=== PATIENT | female | born 1965 | race Caucasian/White ===

== ENCOUNTER 2018-10-02 06:40 | Day surgery (SDC) | payer MEDICARE ==
[2018-09-29 08:09] LABS: HEMATOCRIT 36.9 % (36.0-48.0); HEMOGLOBIN 12.5 g/dL (12-16); MCH 32.6 pg (26.0-34.0); MCHC 33.9 g/dL (31.0-37.0); MCV 96.3 fL (80.0-100.0); MEAN PLATELET VOLUME 8.7 fL (7.4-10.4); RBC 3.83 10x6/uL (4.00-5.40); RDW 12.9 % (11.5-14.5); WBC 10.6 10x3/uL (4.8-10.8)
[~2018-10-02] VITALS: Ht 152.4 cm; Wt 68.0 kg
[~2018-10-02 06:40] MED LIST: BAYER CHEWABLE81 MG PO; CALTRATE 600 M600 M1 PO; CARAFATE1 G PO; MOBIC7.5 MG PO; MYLANTA II SUSP30 ML PO; NEURONTIN 300300 MG PO; SYNTHROID25 MCG PO; ULTRACET TABLET1 TAB PO
[2018-10-02] MEDS ORDERED: NEXIUM20 MG PO (07:17)
[2018-10-02 07:20] VITALS: BP 110/74; Ht 152.4 cm; Wt 68.0 kg
[2018-10-02] MEDS ORDERED: DILAUDID2 MG PO (08:48)
--- NOTE | 2018-10-02 10:50 | NUR ---
104 DR. MALISSA RODGERS. GIVES POST OP INSTRUCTIONS TO PT AND SPOUSE.
--- NOTE | 2018-10-02 10:52 | NUR ---
1050 DC INSTS REVIEWED VOICED UNDERSTANDING RX GIVEN SLING PROVIDED PT. GETTING DRESSED.
--- NOTE | 2018-10-05 12:35 | OP ---
PATIENT NAME: MONIE MARCELO MEDICAL RECORD: [id number] :69 LOCATION:D.OPS ADMISSION DATE: SURGEON: LARON LEONARDO MD DATE OF OPERATION: 10/02/2018 PREOPERATIVE DIAGNOSIS: Carpal tunnel syndrome of the left wrist. POSTOPERATIVE DIAGNOSIS: Carpal tunnel syndrome of the left wrist. PROCEDURE: Left carpal tunnel release. SURGEON: Laron Leonardo MD ANESTHESIA: General. YEAST FERMENTATION ATTENDANT: Patricio López. INTRAOPERATIVE COMPLICATIONS: None. SUMMARY OF PATHOLOGIC FINDINGS: The patient was indeed found to have very tight transverse carpal ligament consistent with preoperative EMGs and NCVs. OPERATIVE SUMMARY IN DETAIL: After obtaining the appropriate preoperative orthopedic surgery consent as well as anesthetic consultation, evaluation and clearance, the patient was brought to the operating room and placed on the operating table in supine position. After adequate general laryngeal mask airway was administered, tourniquet was placed on the proximal aspect of the left upper extremity. Left upper extremity was then prepped and draped in routine sterile fashion. At this point, the appropriate timeout was taken along with the appropriate patient identifiers and it was agreed upon by all. The arm was elevated and exsanguinated, tourniquet was inflated to 350 mmHg. Routine midpalmar incision was made along the fourth metacarpal ray. Incision was taken down the distal aspect. The transverse carpal ligament was identified. A small incision was made here and the median nerve was identified and it was protected throughout the case using a [place] elevator. Combination of both the scalpel, scissors, and the Luis light knife was utilized to complete the carpal tunnel release. Having completed this, wound was irrigated and closed by Nixon López. Local anesthesia was provided. The tourniquet was deflated. Sterile dressings were applied. The patient was awakened and taken to recovery room in stable condition. All final needle and sponge counts were correct. TRANSINT:[id number] Voice Confirmation ID: [id number] DOCUMENT ID: [id number] LARON LEONARDO MD at 1235 CC: [id number] DICTATION DATE: 10/05/18 1047 ASSISTED LIVING COORDINATOR: 10/05/18 1104 [facility] 10/02/18 [place] [id number]
== END 2018-10-02 11:00 | disposition home or self-care (01) ==
LOC: D.OPS 06:40 → D.PAN 11:45
PROVIDERS: Anesthesiology; ATTEND Orthopaedic Surgery
DX: G56.02 Carpal tunnel syndrome, left upper limb (principal)